=== PATIENT | male | born 1990 | race Caucasian/White ===

== ENCOUNTER 2016-11-25 21:24 | Emergency (ER) | payer BC, MEDICAID ==
[2016-11-25] MEDS ORDERED: NS 0.9% 1000 ML* 2,000 ML IV ONE (22:20)
[2016-11-25] MEDS ORDERED: Ketorolac INJ* 30 MG/ML 1 ML VIAL IV PUSH ONE (22:26)
--- NOTE | 2016-11-25 22:48 | ED ---
Influenza-Like Illness - HPI Summary HPI Summary: 26M presents with fever for 2 days. He also admits to headache, cough, sore throat, and body aches. He denies any chest pain or SOB. He has been using dayquil and nyquil. He states that his appetite has been about the same. He denies any ear pain or abdominal pain or n/v/d. He admits to nasal congestion. - History of Current Complaint Chief Complaint: EDFluSymptoms Time Seen by Provider: 11/25/16 22:19 - Allergy/Home Medications Allergies/Adverse Reactions: Allergies Allergy/AdvReac Type Severity Reaction Status Date / Time No Known Allergies Allergy Verified 06/07/16 14:03 PMH/Surg Hx/FS Hx/Imm Hx Endocrine/Hematology History: Denies: Hx Anticoagulant Therapy, Hx Blood Disorders, Hx Diabetes, Hx Thyroid Disease Cardiovascular History: Denies: Hx Hypertension Respiratory History: Denies: Hx Asthma, Hx Chronic Obstructive Pulmonary Disease (COPD) GI History: Denies: Hx Ulcer Neurological History: Reports: Hx Seizures - childhood resolved - Immunization History Date of Tetanus Vaccine: TODAY Infectious Disease History: No Infectious Disease History: Denies: Hx Clostridium Difficile, Hx Hepatitis, Hx Human Immunodeficiency Virus (HIV), Hx of Known/Suspected MRSA, Hx Shingles, Hx Tuberculosis, Hx Known/ Suspected VRE, Hx Known/Suspected VRSA, History Other Infectious Disease, Traveled Outside the [place] in Last 30 Days - Family History Known Family History: Positive: Unknown, Hypertension - Social History Alcohol Use: Rare Substance Use Type: Reports: None Smoking Status (MU): Light Every Day Tobacco Smoker Type: Cigarettes Amount Used/How Often: 1/2-1 PPD Length of Time of Smoking/Using Tobacco: 4-5 years Have You Smoked in the Last Year: Yes Review of Systems Positive: Fever Positive: Sore Throat Negative: Chest Pain Positive: Cough. Negative: Shortness Of Breath Negative: Abdominal Pain, Vomiting, Diarrhea, Nausea All Other Systems Reviewed And Are Negative: Yes Physical Exam Triage Information Reviewed: Yes Vital Signs On Initial Exam: Initial Vitals Temp Pulse Resp BP Pulse Ox 101.3 F 109 15 127/73 98 11/25/16 21:40 11/25/16 21:40 11/25/16 21:40 11/25/16 21:40 11/25/16 21:40 Vital Signs Reviewed: Yes Appearance: Positive: Ill-Appearing Skin: Positive: Warm, Dry Head/Face: Positive: Normal Head/Face Inspection Eyes: Positive: Normal, Conjunctiva Clear ENT: Positive: Pharyngeal erythema, TMs normal. Negative: Tonsillar swelling, Tonsillar exudate, Trismus, Muffled/hoarse voice Neck: Positive: Supple, Nontender, No Lymphadenopathy Respiratory/Lung Sounds: Positive: Clear to Auscultation, Breath Sounds Present Cardiovascular: Positive: Normal, RRR Abdomen Description: Positive: Nontender, Soft Bowel Sounds: Positive: Present - [place] Coma Scale Coma Scale Total: 15 Diagnostics - Vital Signs Vital Signs Temp Pulse Resp BP Pulse Ox 11/25/16 21:40 101.3 F 109 15 127/73 98 - Laboratory Result Diagrams: 11/25/16 23:22 11/25/16 23:22 Lab Statement: Any lab studies that have been ordered have been reviewed, and results considered in the medical decision making process. - Radiology chest Xray Interpretation: No Acute Changes Radiology Interpretation Completed By: Radiologist Flu Symptom Course/Dx - Course Course Of Treatment: 26M presents with fever and cough for 2 days. he also admits to nasal congestion and sore throat. he is a smoker. on exam lungs CTA. appears ill. chest xray normal. labs normal: wbc 10, flu and strept negative. will treat supportaviely told to take ibuprofen every 6 hours. patient understands and agrees with plan - Diagnoses Differential Diagnosis/HQI/PQRI: Positive: Bronchitis, Influenza, Pneumonia, Upper Respiratory Infection Provider Diagnoses: Upper respiratory infection Discharge - Discharge Plan Condition: Good Disposition: HOME Patient Education Materials: Upper Respiratory Infection (ED) Referrals: [facility] [Outside] Additional Instructions: Take ibuprofen every 6 hours for fever Use saline in the nose for nasal congetion Use humidifier or place warm bowls of water around the room for cough Increase fluid intake and eat small amounts of food as tolerated Establish care with primary care physician Return to ED if develop chest pain , shortness of breath, or any new or worsening symptoms
--- NOTE | 2016-11-25 22:58 | RAD ---
INDICATION: Cough and fever. COMPARISON: Comparison is made with a prior chest x-ray study from October 08, 2011. TECHNIQUE: Dual-energy PA and lateral views of the chest were obtained. FINDINGS: The heart is within normal limits in size. Mediastinal and hilar contours appear within normal limits. The lungs are clear. No pleural effusion is present. IMPRESSION: NO EVIDENCE FOR ACTIVE CARDIOPULMONARY DISEASE.
[2016-11-25 23:43] LABS: Hematocrit 45 % (42-52); Hemoglobin 15.3 g/dl (14.0-18.0); Mean Corpuscular HGB Conc 34 g/dl (31-36); Mean Corpuscular Hemoglobin 29 pg (27-31); Mean Corpuscular Volume 85 fL (80-94); Mean Platelet Volume 8 um3 (7.4-10.4); Red Cell Distribution Width 14 % (10.5-15); White Blood Count 10.5 10^3/ul (3.5-10.8)
[2016-11-25 23:52] LABS: BUN/Creatinine Ratio 12.9 (8-20); EGFR African American 115.8 (>60); Potassium 3.2 mmol/L (3.5-5.0); Total Bilirubin 0.6 mg/dL (0.2-1.0)
[2016-11-26 00:47] VITALS: BP 117/58
== END 2016-11-26 00:52 | disposition home or self-care (01) ==
LOC: ED 21:24
DX: J06.9 Acute upper respiratory infection, unspecified (principal); R50.9 Fever, unspecified; R06.02 Shortness of breath; R05 Cough; F17.210 Nicotine dependence, cigarettes, uncomplicated
CPT/HCPCS: 36415; 71020; 80053; 83605; 85025; 87502; 87651; 96374; 99283; J1885

== ENCOUNTER 2017-04-19 16:18 | Emergency (ER) | payer BC, MEDICAID ==
[2017-04-19] MEDS ORDERED: NS 0.9% 1000 ML* 1,000 ML IV ONE (16:58)
[2017-04-19 17:17] LABS: Hematocrit 45 % (42-52); Hemoglobin 15.2 g/dl (14.0-18.0); Mean Corpuscular HGB Conc 34 g/dl (31-36); Mean Corpuscular Hemoglobin 29 pg (27-31); Mean Corpuscular Volume 87 fL (80-94); Mean Platelet Volume 8 um3 (7.4-10.4); Red Cell Distribution Width 14 % (10.5-15); White Blood Count 11.4 10^3/ul (3.5-10.8)
[2017-04-19 17:32] LABS: BUN/Creatinine Ratio 12.8 (8-20); Calcium 9.4 mg/dL (8.6-10.3); EGFR Non-African American 82.4 (>60); Globulin 2.7 g/dL (2-4); Potassium 3.7 mmol/L (3.5-5.0); Total Bilirubin 0.7 mg/dL (0.2-1.0); Total Protein 6.7 g/dL (6.4-8.9)
[2017-04-19] MEDS ORDERED: Iohexol 300* (CONTRAST) 10 ML SDV IV ONE (17:38)
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
[2017-04-19 18:35] VITALS: BP 120/69
== END 2017-04-19 18:35 | disposition home or self-care (01) ==
LOC: ED 16:18
DX: R07.89 Other chest pain (principal); F17.210 Nicotine dependence, cigarettes, uncomplicated
CPT/HCPCS: 36415; 71260; 74177; 80053; 85025; 99282; Q9967

== ENCOUNTER 2018-02-18 19:52 | Emergency (ER) | payer BC, MEDICAID ==
[2018-02-18 22:02] VITALS: BP 140/91
[2018-02-18] MEDS ORDERED: Ibuprofen TAB* 600 MG PO ONE (22:58)
[2018-02-18] MEDS ORDERED: Tetan/Diph/Pertus SYR(Tdap)* 0.5 ML SYR(BOOSTRIX) use SYR IM ONE (22:59)
[2018-02-18] MEDS ORDERED: Acetaminophen TAB* 325 MG PO ONE (22:59)
[2018-02-18] MEDS ORDERED: Cephalexin CAP* 500 MG PO ONE (23:27)
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
== END 2018-02-18 23:49 | disposition home or self-care (01) ==
LOC: ED 19:52
DX: S09.90XA Unspecified injury of head, initial encounter (principal); W22.8XXA Striking against or struck by other objects, initial encounter; Y92.9 Unspecified place or not applicable; R51 Headache; F17.210 Nicotine dependence, cigarettes, uncomplicated
CPT/HCPCS: 90471; 90715; 99282; A9270-GY

== ENCOUNTER 2019-09-28 13:33 | Emergency (ER) | payer MEDICAID, OTHER ==
--- NOTE | 2019-09-28 16:27 | UC ---
Abdominal Pain Male HPI - HPI Summary HPI Summary: Patient is a 29yo male presenting with generalized intermittent abdominal pain x2 days. Described it as dull ache. Patient states he ate clams on Saturday night and symptoms began shortly after. States he vomited twice at symptoms onset. Denies hematemesis. Denies any n/v since. Denies diarrhea or changes in BMs. Notes slight decreased appetite and fluid intake. Denies current pain or nausea. Denies urinary symptoms. Does note mild dry cough and runny nose. Denies fever and chills. Notes body aches. Denies taking anything for symptom relief. - History of Current Complaint Chief Complaint: UCAbdominalPain Stated Complaint: ABDOMINAL PAIN,NAUSEA Hx Obtained From: Patient Pain Intensity: 5 Pain Scale Used: 0-10 Numeric - Allergies/Home Medications Allergies/Adverse Reactions: Allergies Allergy/AdvReac Type Severity Reaction Status Date / Time No Known Allergies Allergy Verified 09/28/19 14:40 Home Medications: Home Medications NK [No Home Medications Reported] 09/28/19 [History Confirmed 09/28/19] PMH/Surg Hx/FS Hx/Imm Hx Other History Of: Negative For: Anticoagulant Therapy - Surgical History Surgical History: None - Family History Known Family History: Positive: Unknown - ADOPTED, Hypertension - Social History Alcohol Use: Rare Substance Use Type: None Smoking Status (MU): Light Every Day Tobacco Smoker Type: Cigarettes Amount Used/How Often: 1/2-1 PPD Length of Time of Smoking/Using Tobacco: 4-5 years Have You Smoked in the Last Year: Yes Household Exposure Type: Cigarettes - Immunization History Most Recent Influenza Vaccination: none Review of Systems All Other Systems Reviewed And Are Negative: Yes Constitutional: Positive: Negative Physical Exam - Summary Physical Exam Summary: Vital Signs Reviewed: Yes A+Ox3, no distress, well-appearing Eyes: Conjunctiva Clear ENT: Hearing grossly normal TM x 2 clear, moist, uvula midline, no exudate, no erythema Neck: Positive: Supple Respiratory: Positive: No respiratory distress, No accessory muscle use + CTA throughout no w/r Cardiovascular: RRR nl s1, s2 no m/r Abd: soft + BS nt/nd no guarding Musculoskeletal Exam: LAW x 4 without difficulty Neurological: Positive: Alert Psychological: Positive: age appropriate behavior Skin: Positive: no rash, no ecchymosis Vital Signs: Initial Vital Signs Temp 99 F 09/28/19 14:34 Pulse 52 09/28/19 14:34 Resp 16 09/28/19 14:34 BP 111/74 09/28/19 14:34 Pulse Ox 98 09/28/19 14:34 Abd Pain Male Course/Dx - Course Course Of Treatment: UA negative. Rapid flu negative. Patient VS and PE findings WNL. No pain distress. Educated patient on symptomatic treatment, including bland diet, otc analgesics, and maintaining hydration. Instructed to go to ED with any new or worsening symptoms. Patient voiced understanding and agreed with treatment plan. - Differential Dx/Clinical Impression Provider Diagnosis: Acute generalized abdominal pain Discharge ED - Sign-Out/Discharge Documenting (check all that apply): Patient Departure All imaging exams completed and their final reports reviewed: No Studies - Discharge Plan Condition: Stable Disposition: HOME Patient Education Materials: Acute Abdominal Pain (ED) Referrals: [facility] [Outside] - If Needed Additional Instructions: Your flu test was negative today. You may take tylenol as directed for pain relief. Get plenty of rest and increase your fluid intake. Eat a bland diet, such as bread, bananas, and rice while symptoms are present. Go to the emergency room if your symptoms do not resolve or you develop fever, severe abdominal pain, excessive vomiting, or are unable to keep fluids down. - Billing Disposition and Condition Condition: STABLE Disposition: Home
[2019-09-28 16:56] VITALS: BP 120/80
[2019-09-28 17:00] LABS: Influenza A Molecular Negative (Negative); Influenza B Molecular Negative (Negative)
== END 2019-09-28 17:35 | disposition home or self-care (01) ==
LOC: UCEAST 13:33
DX: R10.84 Generalized abdominal pain (principal); F17.210 Nicotine dependence, cigarettes, uncomplicated
CPT/HCPCS: 81003; 99211; G0463

== ENCOUNTER 2019-10-07 12:56 | Emergency (ER) | payer OTHER ==
[2019-10-07 13:15] VITALS: BP 119/82
--- NOTE | 2019-10-07 13:36 | UC ---
FLU HPI - HPI Summary HPI Summary: 29-year-old male who had cold symptoms since last Saturday and then yesterday started experiencing flulike illness with fever and body aches. - History of Current Complaint Chief Complaint: UCGeneralIllness Stated Complaint: FLU LIKE SYMPTOMS Time Seen by Provider: 10/07/19 13:29 Hx Obtained From: Patient Onset/Duration: Gradual Onset Severity Currently: Moderate Severity Initially: Mild Pain Intensity: 7 Associated Signs & Symptoms: Positive: Fever, Myalgia, Cough, Nasal Congestion, Headache Related Hx: Possible Flu/Infectious Exposure - Allergy/Home Medications Allergies/Adverse Reactions: Allergies Allergy/AdvReac Type Severity Reaction Status Date / Time No Known Allergies Allergy Verified 10/07/19 13:15 PMH/Surg Hx/FS Hx/Imm Hx Previously Healthy: Yes Other History Of: Negative For: Anticoagulant Therapy - Surgical History Surgical History: None - Family History Known Family History: Positive: Unknown - ADOPTED, Hypertension - Social History Occupation: Employed Full-time Lives: With Family Alcohol Use: Rare Substance Use Type: None Smoking Status (MU): Light Every Day Tobacco Smoker Type: Cigarettes Amount Used/How Often: 1/2-1 PPD Length of Time of Smoking/Using Tobacco: 4-5 years Have You Smoked in the Last Year: Yes Household Exposure Type: Cigarettes - Immunization History Most Recent Influenza Vaccination: none Review of Systems All Other Systems Reviewed And Are Negative: Yes Constitutional: Positive: Fever, Chills ENT: Positive: Nasal Discharge Respiratory: Positive: Cough Musculoskeletal: Positive: Myalgia Neurological/Mental Status: Positive: Headache Is Patient Immunocompromised?: No Physical Exam Triage Information Reviewed: Yes Appearance: Well-Appearing, No Pain Distress, Well-Nourished Vital Signs: Initial Vital Signs Temp 102.2 F 10/07/19 13:13 Pulse 110 10/07/19 13:13 Resp 18 10/07/19 13:13 BP 119/82 10/07/19 13:13 Pulse Ox 98 10/07/19 13:13 Vital Signs Reviewed: Yes Eyes: Positive: Conjunctiva Clear ENT: Positive: Hearing grossly normal, Pharynx normal, Nasal drainage - Clear nasal coryza, TMs normal, Uvula midline Neck: Positive: Supple, Nontender, No Lymphadenopathy Respiratory: Positive: Lungs clear, Normal breath sounds, No accessory muscle use - Moist loose cough. Cardiovascular: Positive: No Murmur, Pulses Normal, Brisk Capillary Refill, Tachycardia Abdomen Description: Positive: Nontender, No Organomegaly, Soft. Negative: CVA Tenderness (R), CVA Tenderness (L), Distended, Guarding, Hepatomegaly, McBurney' s Point Tenderness, Splenomegaly Bowel Sounds: Positive: Present Musculoskeletal Exam: Normal Neurological Exam: Normal Psychological Exam: Normal Skin Exam: Normal Flu Course/Dx - Course Course Of Treatment: Patient is comfortable here. Rapid flu test was negative. - Differential Dx/Diagnosis Provider Diagnosis: Flu-like symptoms Discharge ED - Sign-Out/Discharge Documenting (check all that apply): Patient Departure All imaging exams completed and their final reports reviewed: No Studies - Discharge Plan Condition: Fair Disposition: HOME Patient Education Materials: Influenza (DC) Forms: *Work Release Referrals: [facility] [Outside] [facility] [Outside] No Primary Care Phys,NOPCP [Primary Care Provider] - Additional Instructions: Increase fluids, [id number] cold medicines as directed, rest, follow up at [facility] if no improvement in 3 or 4 days. - Billing Disposition and Condition Condition: FAIR Disposition: Home
[2019-10-07] MEDS ORDERED: Acetaminophen TAB* 325 MG PO ONE (13:37)
[2019-10-07 14:00] LABS: Influenza A Molecular Negative (Negative); Influenza B Molecular Negative (Negative)
== END 2019-10-07 14:15 | disposition home or self-care (01) ==
LOC: UCEAST 12:56
DX: M79.10 Myalgia, unspecified site (principal); R50.9 Fever, unspecified; R05 Cough; R09.81 Nasal congestion; R51 Headache; F17.210 Nicotine dependence, cigarettes, uncomplicated
CPT/HCPCS: 99212; A9270-GY; G0463